=== PATIENT | female | born 1950 | race Caucasian/White ===

== ENCOUNTER → 2017-02-20 | Outpatient (CLI) | payer OTHER | LOC: BRMIMAGING 14:08 | DX: Z12.31 Encounter for screening mammogram for malignant neoplasm of breast (principal) | CPT/HCPCS: G0202 ==

== ENCOUNTER → 2018-02-17 | Outpatient (CLI) | payer OTHER | LOC: BRMIMAGING 14:06 | PROVIDERS: ATTEND Family Medicine | DX: Z12.31 Encounter for screening mammogram for malignant neoplasm of breast (principal); M81.0 Age-related osteoporosis without current pathological fracture ==

== ENCOUNTER → 2019-01-04 | Outpatient (CLI) | payer OTHER | LOC: SUPIMAGING 12:20 → EDSTATUS 15:50 | PROVIDERS: ATTEND Family Medicine | DX: K59.00 Constipation, unspecified (principal); R11.0 Nausea; I87.8 Other specified disorders of veins | CPT/HCPCS: 74019-PN ==

== ENCOUNTER → 2019-02-19 | Outpatient (CLI) | payer OTHER | LOC: BRMIMAGING 10:55 | PROVIDERS: ATTEND Family Medicine | DX: Z12.31 Encounter for screening mammogram for malignant neoplasm of breast (principal) ==